=== PATIENT | male | born 1980 | race Hispanic/Latino ===

== ENCOUNTER 2023-10-09 19:01 | Emergency (ER) | payer OTHER ==
[~2023-10-09] VITALS: Ht 175.3 cm; Wt 102.1 kg
[2023-10-09] MEDS: IBUPROFEN 800 MG TAB PO ONE (22:20)
[2023-10-09] MEDS: CYCLOBENZAPRINE HCL 10 MG TABLET PO ONE (22:20)
[2023-10-09] MEDS ORDERED: IBUP-2077 PO (22:54)
[2023-10-09] MEDS ORDERED: CYCL-309 PO (22:54)
[2023-10-09 23:13] VITALS: BP 147/95; PULSE 80; RESP 17; O2SAT 98
== END 2023-10-09 23:00 | disposition home or self-care (01) ==
LOC: EDH 19:01
DX: S39.012A Strain of muscle, fascia and tendon of lower back, initial encounter (principal); Z90.49 Acquired absence of other specified parts of digestive tract; V89.2XXA Person injured in unspecified motor-vehicle accident, traffic, initial encounter; Y93.89 Activity, other specified; Y92.89 Other specified places as the place of occurrence of the external cause; Y99.8 Other external cause status
CPT/HCPCS: 72100